=== PATIENT | female | born 1980 | race Caucasian/White ===

== ENCOUNTER 2021-04-12 11:05 | Outpatient (CLI) | payer BC, SELFPAY ==
--- NOTE | ~2021-04-12 | US_ITS ---
EXAMINATION: US thyroid DATE: 04/12/2021 11:32 INDICATION: Hypothyroidism. TECHNIQUE: Multiple ultrasound images of the thyroid were obtained. COMPARISON: None. FINDINGS: The right thyroid lobe measures 4.7 x 1.2 x 1.2 cm. The left thyroid lobe measures 4.7 x 1.7 x 1.2 c m. There is normal echotexture and echogenicity throughout the thyroid gland. No discrete nodules id entified. Normal vascular flow is present. IMPRESSION: 1. Normal thyroid. Reviewed, dictated and finalized at location B. IMPRESSION: 1. Normal thyroid.
== END 2021-04-12 11:06 | disposition home or self-care (01) ==
PROVIDERS: PCP Physician Assistant; Visit Provider Physician Assistant
DX: E06.3 Autoimmune thyroiditis (principal)
CPT/HCPCS: 76536

== ENCOUNTER 2022-09-22 09:10 | Outpatient (CLI) | payer BC, SELFPAY ==
--- NOTE | ~2022-09-22 | MM_ITS ---
EXAMINATION: MM screening thiago BI w lena HISTORY: Baseline screening mammogram TECHNIQUE: Craniocaudal and mediolateral oblique 3-D tomosynthesis images were obtained and synthetic 2-D images were generated. CAD analysis was submitted and interpreted. COMPARISON: None, baseline BREAST PARENCHYMAL COMPOSITION: There are scattered areas of fibroglandular density. FINDINGS: No suspicious mass, calcification, or architectural distortion are identified in either helen ast to suggest malignancy. IMPRESSION: 1. No mammographic evidence of malignancy. 2. Recommend routine screening mammography in one year. BI-RADS Category 1: Negative Reviewed, dictated and finalized at location A.
== END 2022-09-22 09:11 | disposition home or self-care (01) ==
LOC: ANHIMG 09:11
PROVIDERS: PCP Physician Assistant; Visit Provider Student in an Organized Health Care Education/Training Program
DX: Z12.31 Encounter for screening mammogram for malignant neoplasm of breast (principal)
CPT/HCPCS: 77063; 77067

== ENCOUNTER 2023-12-28 07:40 | Outpatient (CLI) | payer BC, SELFPAY ==
--- NOTE | ~2023-12-28 | MM_ITS ---
EXAMINATION: MM screening thiago BI w lena HISTORY: Screening TECHNIQUE: Craniocaudal and mediolateral oblique 3-D tomosynthesis images were obtained and synthetic 2-D images were generated. CAD analysis was submitted and interpreted. COMPARISON: 09/22/2022 BREAST PARENCHYMAL COMPOSITION: There are scattered areas of fibroglandular density. FINDINGS: There is no evidence of suspicious mass, calcification, or architectural distortion to sugg est malignancy in either breast. There has been no suspicious interval change. IMPRESSION: 1. No mammographic evidence of malignancy. 2. Recommend routine screening mammography in one year. BI-RADS Category 1: Negative Reviewed, dictated and finalized at location A. E AIDE
== END 2023-12-28 07:41 | disposition home or self-care (01) ==
LOC: ANHIMG 07:42
PROVIDERS: PCP Physician Assistant; Visit Provider Registered Nurse
DX: Z12.31 Encounter for screening mammogram for malignant neoplasm of breast (principal)
CPT/HCPCS: 77063; 77067

== ENCOUNTER 2025-04-28 11:30 | Outpatient (RCR) | payer BC, SELFPAY ==
--- NOTE | 2025-03-09 11:48 | OPREHPOC ---
Outpatient Therapy Plan of Care This is a Multidisciplinary Plan of Care that may contain components documented by all disciplines (PT, OT, and ST.) PT Problem 1 PT Problem #1 Knowledge Deficit PT Goal 1 Goal / Goal Update 1. Pt to be IND with issued EHP PT Problem 2 PT Problem #2 Pain PT Goal 1 Goal / Goal Update 1. Pt to report no pain no greater than 2/10 in the last week 2. Pt to decline radicular symptoms in the last week PT Problem 3 PT Problem #3 Impaired Strength PT Goal 1 Goal / Goal Update 1. pt to improve hip abduction strength to 4/5 to improve gait pattern Target Visit 6
--- NOTE | 2025-03-09 11:49 | PTOPEVAL1 ---
Assessment and note entered by Stanley Arnett, PT, DPT Evaluation Information Assessment Status Evaluation Diagnosis R hip pain ICD-10 Condition Codes (PT) Pain in right hip M25.551 Onset 1-2 year Subjective Information Pt reports chronic R hip pain, gets numbness and tingling. Altered sensation and pain has increased in frequency and intensity, worse in the last year, especially in the last month. Will at times gets a shooting pain down into her foot. Reports decreased motion on her R hip. Prolonged standing is the most limited for her. Pt has a desk job. Reported Pain Level Pain Score 2: Self Report Assessment PT Clinical Summary Pt presents to therapy today for her initial evaluation, today she demonstrates s/s consistent with piriformis syndrome. She demonstrates decreased R hip ROM, weakness, and decreased flexibility of the ITB and piriformis. She ambulates with increased lateral pelvic motion and robin femoral int rot. She also stands with an anterior pelvic tilt. Skilled therapy services are indicated to address the deficits noted above, to manage pain, and to return to PLOF. Plan of Care Interventions Electrical Stimulation,Gait Training,Hot Pack/Cold Pack,Manual Therapy,Neuro Re-education,Patient/ Caregiver Education,Therapeutic Activities, Therapeutic Exercise PT Services Indicated Yes Treatment Frequency and 1x/wk for 6 visits Duration These treatments will address the objective and functional deficits as defined above. The patient will be advanced safely and appropriately in order for the patient to progress towards his/her prior level of function. Additional exercises will be introduced and as well as a comprehensive home exercise program upon discharge, if needed, ?to ensure carryover of functional gains achieved in the clinic. This treatment plan has been reviewed and agreement upon by the patient.
--- NOTE | 2025-04-28 12:02 | OPREHPOC ---
Outpatient Therapy Plan of Care This is a Multidisciplinary Plan of Care that may contain components documented by all disciplines (PT, OT, and ST.) PT Problem 1 PT Problem #1 Knowledge Deficit PT Goal 1 Goal / Goal Update 1. Pt to be IND with issued EHP Progress Met PT Problem 2 PT Problem #2 Pain PT Goal 1 Goal / Goal Update 1. Pt to report no pain no greater than 2/10 in the last week 2. Pt to decline radicular symptoms in the last week Progress Met PT Problem 3 PT Problem #3 Impaired Strength PT Goal 1 Goal / Goal Update 1. pt to improve hip abduction strength to 4/5 to improve gait pattern Target Visit 6 Progress Met
--- NOTE | 2025-04-28 12:02 | PTOPDC ---
Assessment and note entered by Hugo Mclain, PT Evaluation Information Assessment Status Discharge Diagnosis R hip pain ICD-10 Condition Codes (PT) Pain in right hip M25.551 Onset 1-2 year Subjective Information Reports that overall she is doing much better, No concerns at this time for pain or mobility issues. No concerns and feels comfortable with HEP continuity. Reported Pain Level Pain Score 0: Self Report Assessment PT Clinical Summary Patient has met all goals for therapy at this time and is suitable for discharge at this time to [facility] . Plan of Care PT Services Indicated Yes
== END 2025-04-28 13:08 | disposition home or self-care (01) ==
LOC: ANHGOSHPT 11:30
PROVIDERS: PCP Physician Assistant
DX: M25.551 Pain in right hip (principal)
CPT/HCPCS: 97110; 97140; 97161; 97530